=== PATIENT | male | born 1995 | race Caucasian/White ===

== ENCOUNTER 2021-06-02 09:49 | Emergency (ER) | payer MEDICAID ==
[~2021-06-02] VITALS: Ht 175.3 cm; Wt 80.0 kg
[~2021-06-02 09:49] MED LIST: AMOXICILLIN875 MG OR; LORATADINE10 M1 PO; MEDDOSEPAK PO
[2021-06-02 11:02] VITALS: BP 133/78
== END 2021-06-02 14:10 | disposition left against medical advice (07) ==
LOC: ED 09:49
DX: Z91.19 Patient's noncompliance with other medical treatment and regimen (principal); U07.1 COVID-19